=== PATIENT | female | born 1990 | race American Indian/Alaskan Native ===

== ENCOUNTER 2017-12-18 18:45 | Emergency (ER) | payer SELFPAY ==
[2017-12-18 20:09] LABS: HCG Qualitative,Urine Negative (Negative)
--- NOTE | 2017-12-19 00:04 | XRay Report ---
FINAL REPORT PROCEDURE: XR CHEST ROUTINE 2V TECHNIQUE: PA and lateral chest radiographs were obtained. CPT 49069 HISTORY: cough COMPARISON: No prior studies are available for comparison. FINDINGS: Heart: Normal. Mediastinum/Vessels: Normal. Lungs/Pleural space: Normal. Bony thorax: No acute osseous abnormality. Other: IMPRESSION: Normal examination.
--- NOTE | 2017-12-19 00:39 | Emergency Department Report ---
- General Chief Complaint: Upper Respiratory Infection Stated Complaint: SOB, CONGESTION Time Seen by Provider: 12/18/17 23:25 Source: patient Mode of arrival: Ambulatory Limitations: No Limitations - History of Present Illness Initial Comments: 27-year-old female past medical history none presents with complaint of slight sore throat for 2-3 days. Patient states that she had mild sore throat which causes her to cough. 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 Patient denies fever or chills. States she has slight nasal congestion. Patient is awake alert and oriented 3. Possible contact with strep throat at work. Fully lucid. Denies any pleuritic chest pain palpitations or shortness of breath. MD Complaint: sore throat Onset/Timin -: days(s) Severity: moderate Associated Symptoms: cough - Related Data Previous Rx's Medication Instructions Recorded Last Taken Type Azithromycin [Zithromax Z-LELO] 250 mg PO QDAY #1 pack 12/19/17 Unknown Rx Dextromethorphan/Benzocaine 1 each PO Q4H PRN #1 box 12/19/17 Unknown Rx [Cepacol Sorethroat-Cough Estefany] Ibuprofen [Motrin] 600 mg PO Q8H PRN #20 tablet 12/19/17 Unknown Rx Allergies Allergy/AdvReac Type Severity Reaction Status Date / Time No Known Allergies Allergy Verified 12/18/17 19:16 ED Review of Systems ROS: Stated complaint: SOB, CONGESTION Other details as noted in HPI Constitutional: denies: chills, fever Eyes: denies: eye pain, eye discharge, vision change ENT: throat pain. denies: ear pain Respiratory: cough. denies: shortness of breath, wheezing Cardiovascular: denies: chest pain, palpitations Endocrine: no symptoms reported Gastrointestinal: denies: abdominal pain, nausea, diarrhea Genitourinary: denies: urgency, dysuria, discharge Musculoskeletal: denies: back pain, joint swelling, arthralgia Skin: denies: rash, lesions Neurological: denies: headache, weakness, paresthesias Psychiatric: denies: anxiety, depression Hematological/Lymphatic: denies: easy bleeding, easy bruising ED Past Medical Hx - Past Medical History Previous Medical History?: No - Surgical History Past Surgical History?: No - Social History Smoking Status: Never Smoker Substance Use Type: None - Medications Home Medications: Home Medications Medication Instructions Recorded Confirmed Last Taken Type Azithromycin [Zithromax Z-LELO] 250 mg PO QDAY #1 pack 12/19/17 Unknown Rx Dextromethorphan/Benzocaine 1 each PO Q4H PRN #1 box 12/19/17 Unknown Rx [Cepacol Sorethroat-Cough Estefany] Ibuprofen [Motrin] 600 mg PO Q8H PRN #20 tablet 12/19/17 Unknown Rx ED Physical Exam - General Limitations: No Limitations General appearance: alert, in no apparent distress - Head Head exam: Present: atraumatic, normocephalic - Eye Eye exam: Present: normal appearance, PERRL, EOMI - ENT ENT exam: Present: mucous membranes moist - Expanded ENT Exam Expanded Throat exam: Positive: tonsillar erythema (slight tonsillar erythema. 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 Absent: respiratory distress - Cardiovascular Cardiovascular Exam: Present: regular rate, normal rhythm. Absent: systolic murmur, diastolic murmur, rubs, gallop - GI/Abdominal GI/Abdominal exam: Present: soft, normal bowel sounds - Extremities Exam Extremities exam: Present: normal inspection - Back Exam Back exam: Present: normal inspection - Neurological Exam Neurological exam: Present: alert, oriented X3 - Psychiatric Psychiatric exam: Present: normal affect, normal mood - Skin Skin exam: Present: warm, dry, intact, normal color. Absent: rash ED Course Vital Signs 12/18/17 12/19/17 19:16 00:48 Temperature 98.5 F 98.2 F Pulse Rate 69 71 Respiratory 16 16 Rate Blood Pressure 116/68 Blood Pressure 107/70 [Right] O2 Sat by Pulse 98 100 Oximetry ED Medical Decision Making - Medical Decision Making A/P: Acute bronchitis, possible strep exposure 1-PERC negative 2-x-ray unremarkable. 3-Motrin when necessary, throat lozenges when necessary, azithromycin Critical care attestation.: If time is entered above; I have spent that time in minutes in the direct care of this critically ill patient, excluding procedure time. ED Disposition Clinical Impression: Sore throat Upper respiratory infection Qualifiers: URI type: unspecified URI Qualified Code(s): J06.9 - Acute upper respiratory infection, unspecified Disposition: DC-01 TO HOME OR SELFCARE Is pt being admited?: No Does the pt Need Aspirin: No Condition: Stable Instructions: Upper Respiratory Infection (ED), Viral Syndrome (ED) Prescriptions: Azithromycin [Zithromax Z-LELO] 250 mg PO QDAY #1 pack Dextromethorphan/Benzocaine [Cepacol Sorethroat-Cough Estefany] 1 each PO Q4H PRN #1 box PRN Reason: Sore Throat Ibuprofen [Motrin] 600 mg PO Q8H PRN #20 tablet PRN Reason: Pain Referrals: [facility] [Provider Group] - 3-5 Days Forms: Accompanied Note, Work/School Release Form(ED) Time of Disposition: 00:38
[2017-12-19 00:49] VITALS: BP 107/70
== END 2017-12-19 00:44 | disposition home or self-care (01) ==
LOC: ED 18:45
DX: J06.9 Acute upper respiratory infection, unspecified (principal); J02.9 Acute pharyngitis, unspecified
CPT/HCPCS: 71046; 81025